=== PATIENT | female | born 1970 | race Caucasian/White ===

== ENCOUNTER 2019-01-08 23:11 | Emergency (ER) | payer MEDICAID ==
[~2019-01-08] VITALS: Ht 162.6 cm; Wt 75.3 kg
[2019-01-08 23:16] VITALS: BP_SYST 138
[2019-01-09] MEDS ORDERED: SULFAMETHOXAZOLE/TRIMETHOPR DS 1 TABLET PO ONE (02:45)
[2019-01-09] MEDS ORDERED: FAMOTIDINE 20 MG TABLET PO ONE (02:45)
[2019-01-09] MEDS ORDERED: PREDNISONE 20 MG TABLET PO ONE (02:45)
[2019-01-09] MEDS ORDERED: DIPHENHYDRAMINE HCL 25 MG CAPSULE PO ONE (02:45)
[2019-01-09 02:57] VITALS: BP_SYST 126
== END 2019-01-09 02:57 | disposition home or self-care (01) ==
LOC: SED 23:11
DX: S70.362A Insect bite (nonvenomous), left thigh, initial encounter (principal); W57.XXXA Bitten or stung by nonvenomous insect and other nonvenomous arthropods, initial encounter; Y93.89 Activity, other specified; Y92.89 Other specified places as the place of occurrence of the external cause; Y99.8 Other external cause status
CPT/HCPCS: 99284; J7512; Q0163

== ENCOUNTER 2019-01-30 22:47 | Emergency (ER) | payer MEDICAID ==
[~2019-01-30] VITALS: Ht 162.6 cm; Wt 75.3 kg
[2019-01-30 22:55] VITALS: BP_SYST 172
[2019-01-30] MEDS ORDERED: methylPREDNISolone SOD SUCC/PF 62.5 MG/ML VIAL IVP ONE (23:30)
[2019-01-30] MEDS ORDERED: DIPHENHYDRAMINE INJ 50 MG/ML VIAL IVP ONE (23:30)
[2019-01-30] MEDS ORDERED: FAMOTIDINE PF 20 MG/2 ML VIAL IVP ONE (23:30)
[2019-01-31 01:01] VITALS: BP_SYST 182
== END 2019-01-31 00:55 | disposition home or self-care (01) ==
LOC: SED 22:47
DX: T78.40XA Allergy, unspecified, initial encounter (principal); R21 Rash and other nonspecific skin eruption; X58.XXXA Exposure to other specified factors, initial encounter
CPT/HCPCS: 81025; 96374; 96375; 99283; J1200; J2930